=== PATIENT | male | born 1965 | race Caucasian/White ===

== ENCOUNTER → 2021-03-06 | Outpatient (CLI) | payer BC ==
[2021-03-06 07:34] LABS: HEMATOCRIT 43.7 % (42.0-52.0); HEMOGLOBIN 15.3 gm/dL (14.0-18.0); MCH 32.2 pg (26.0-34.0); MCHC 34.9 g/dL (28.0-37.0); MCV 92.2 fL (80.0-100.0); MPV 10.7 fl. (7.2-11.1); RBC 4.74 mil/uL (4.50-6.00); RDW-CV 12.7 % (10.5-14.5)
[2021-03-06 07:43] LABS: CALCIUM 8.6 mg/dL (8.5-10.1); CREATININE 0.9 mg/dL (0.6-1.3); POTASSIUM 4.1 mmol/L (3.5-5.1)
== END ==
LOC: M.LAB 06:43
PROVIDERS: ATTEND Podiatrist
DX: Z01.812 Encounter for preprocedural laboratory examination (principal); M77.32 Calcaneal spur, left foot

== ENCOUNTER → 2021-03-12 | Outpatient (CLI) | payer BC | LOC: M.LAB 08:51 | PROVIDERS: ATTEND Podiatrist | DX: Z20.822 Contact with and (suspected) exposure to COVID-19 (principal) ==